=== PATIENT | male | born 1995 | race Caucasian/White ===

== ENCOUNTER 2021-10-20 20:25 | Emergency (ER) | payer MEDICAID, SELFPAY ==
[2021-10-20 20:24] VITALS: BP 138/125; PULSE 118; RESP 20; TEMP 36.7; O2SAT 100
--- NOTE | 2021-10-20 20:35 | W.ED.GENAD ---
Discharge Plan Disposition Patient Disposition: HOME Condition: Stable Discharge Details Clinical Impression: Esophageal foreign body Primary Care Provider: Lisa,Local ED Provider: Franc So Home Meds and New Rx's Prescriptions: Continued cetirizine [Zyrtec] 10 MG tablet 1 tab PO DAILY Qty: 90 Discharge Instructions Instructions: Esophageal Foreign Body (ED) Additional Instructions: try to cut your food smaller and make sure to chew it adequately if you feel more ill, have severe pain or difficulty breathing return to the emergency department Medical Decision Making 26 yo male who denies chronic medical problems comes in with ems with stating he has ham stuck in his throat. He was eating it tonight and swallowed a large piece of ham and felt it get stuck in his throat while swallowing. He is speaking clearly, no stridor but is unable to swallow liquids. HE has no abdominal tenderness, clear lungs, points to the upper sternal border where he feels it is stuck. Normal posterior pharynx, no drooling. Will try glucagon and also effervescent pt coughed and had large piece of ham up, will hold on meds at this time pt stable, swallowing liquids, requesting d/c. Advised to try and make sure he cuts and chews food well, return precautions given Differential Diagnosis Differential Diagnosis: esopohageal foreign body, stricture HPI General Mode of arrival: ambulatory. Date/Time Provider Initiated Documentation: 10/20/21 20:33. Limitations to Documentation: no limitations. Information obtained by: patient. History of Present Illness 26 year old M presents to the emergency department with the chief complaint of ham stuck in throat, described as moderate, Patient started experiencing this hour(s) (1) and it has been constant. No relieving factors improve symptom(s), No exacerbating factors reported . Patient notes no other symptoms.. Patient did receive the following treatments prior to arrival, none Related Data Home Medications Medication Instructions Recorded Confirmed cetirizine 10 mg tablet (Zyrtec) 1 tab PO DAILY #90 tab-caps 04/11/16 Allergies Allergy/AdvReac Type Severity Reaction Status Date / Time No Known Allergies Allergy Unverified 08/21/16 15:22 General Stated Complaint: ThroatFB CHACE: 2 Review of Systems All systems reviewed & are unremarkable except as noted in HPI and below Constitutional Constitutional: Denies chills, Denies fever(s) and Denies weakness Eyes Eyes: Denies loss of vision ENT Ears, Nose, Mouth, and Throat: Denies change in voice Cardiovascular Cardiovascular: Denies chest pain and Denies dyspnea Respiratory Respiratory: Denies cough and Denies dyspnea Gastrointestinal Gastrointestinal: Denies abdominal pain, Denies nausea and Denies vomiting Integumentary/Breasts Skin/Breast: Denies rash Neurologic Neurologic: Denies loss of vision and Denies weakness PFSH All Active Problems (Updated 10/20/21 @ 20:53 by Franc So MD) Esophageal foreign body (Acute) ADHD (Acute 10/25/12) Allergic rhinitis (Acute 10/25/12) Wheezing (Acute 10/25/12) Medical History (Updated 10/20/21 @ 20:53 by Franc So MD) iep/504 Vision disturbance Surgical History Adenoidectomy Circumcision Myringotomy w/ PE (pressure equalizing) tubes Family History Father Essential hypertension Heart disease Hyperlipidemia Social History Smoking/Tobacco Use Status: Never Smoking risk assessment performed?: Yes Alcohol Intake: current Alcohol Intake frequency: holidays/special occasions only Substance use type: does not use Exam Const General: no acute distress Orientation: alert [facility] Head: normal to inspection Ears: external ears normal General nose exam: external nose normal Mouth: moist mucous membranes Eyes General: appearance normal, both eyes and all related structures Neck Neck: normal visual inspection Resp Effort & Inspection: normal respiratory effort and able to speak in complete sentences Cardio Rate: regular rate Skin General skin exam: no rashes or lesions noted Neuro General: patient alert and patient oriented x3 Extrem General: normal to inspection Psych Mental Status: mental status grossly normal Course Vital Signs Vital signs: Vital Signs Temperature 36.7 C 10/20/21 20:24 Pulse 118 H 10/20/21 20:24 Respiratory Rate 10/20/21 20:24 Blood Pressure 138/125 H 10/20/21 20:24 Pulse Oximetry 100 10/20/21 20:24 Temperature 36.7 C 10/20/21 20:24 Temperature Source Temporal Artery Scan 10/20/21 20:24 Pulse 118 H 10/20/21 20:24 Respiratory Rate 10/20/21 20:24 Blood Pressure 138/125 H 10/20/21 20:24 Blood Pressure Position Sitting 10/20/21 20:24 Pulse Oximetry 100 10/20/21 20:24 Oxygen Delivery Method Room Air 10/20/21 20:24 Oxygen Flow Rate 0 10/20/21 20:24
[2021-10-20 20:39] VITALS: BP 136/80; PULSE 97; RESP 18; O2SAT 100
[2021-10-20 21:08] VITALS: BP 112/88; PULSE 91; RESP 17; O2SAT 97
[2021-10-20 21:39] VITALS: BP 113/61; PULSE 85; RESP 18; O2SAT 96
== END 2021-10-20 21:44 | disposition home or self-care (01) ==
LOC: ER 21:55
PROVIDERS: Emergency Provider Emergency Medicine
DX: T18.128A Food in esophagus causing other injury, initial encounter (principal); X58.XXXA Exposure to other specified factors, initial encounter
CPT/HCPCS: 87635; 96374; 99284

== ENCOUNTER 2023-03-21 19:20 | Emergency (ER) | payer MEDICAID, SELFPAY ==
[2023-03-21 19:30] VITALS: BP 150/82; PULSE 82; RESP 16; TEMP 36.6; O2SAT 98
--- NOTE | 2023-03-21 19:30 | DI.RAD_ITS ---
Exam(s) XR THORACOLUMB JUNCT 2V EXAM: XR THORACOLUMB JUNCT 2V CLINICAL HISTORY: fall injury mid/low back pain. TECHNIQUE: 2D digital imaging was performed of the thoracic and lumbar spine. Six images were obtai amos. AP and lateral views were obtained. COMPARISON: CR CHEST 2 VIEWS PA,LAT from 02/15/2010 FINDINGS: BONES: No fracture or destructive lesion. Vertebral bodies are unremarkable. No facet hypertrophy katie ntified. DISKS: Intervertebral disc spaces are maintained. ALIGNMENT: Lumbar spinal alignment is within normal limits. SOFT TISSUE: The visualized lung kaur are clear. IMPRESSION: No acute fractures or subluxations. DATA REPOSITORY: RADIATION DOSE DELIVERED:
--- NOTE | 2023-03-21 19:39 | ED.GENADUL_ITS ---
HPI General Mode of arrival: ambulatory . Date/Time Provider Initiated Documentation: 03/21/23 19:39 . Limitations to Documentation: no limitations . Information obtained by: patient . HPI Narrative: patient presents to the ED for evaluation of mid to low back pain after sustaining abdomen mechanical fall with send slipped on ice while working this afternoon at approximately 430. He did not hit his head there was no other injury or complaints he was able to get up and finish his shift. He took acetaminophen immediately after the fall. He is presenting now for evaluation at the recommendation of significant. This pain has not worsened and again there are no other symptoms Related Data Home Medications Medication Instructions Recorded Confirmed cetirizine 10 mg tablet (Zyrtec) 1 tab PO DAILY PRN #90 tab-caps 04/11/16 03/21/23 ibuprofen 200 mg tablet 600 mg (3 x 200 mg) PO Q6H PRN #1 03/21/23 tab Previous Rx's Medication Instructions Recorded ibuprofen 200 mg tablet 600 mg (3 x 200 mg) PO Q6H PRN #1 03/21/23 tab Allergies Allergy/AdvReac Type Severity Reaction Status Date / Time No Known Allergies Allergy Unverified 03/21/23 19:34 General Stated Complaint: Nk/Back Pain CHACE: 3 Review of Systems All systems reviewed & are unremarkable except as noted in HPI and below Exam Narrative Exam Narrative: Well-appearing male of stated age in no acute distress. Head is atraumatic normocephalic. Neck is supple with full range of motion and no C-spine tenderness on palpation. Cardiovascular regular rate and rhythm pulses regular skin is well-perfused good distal pulses radial. Respirations are even and nonlabored. Chest rise is symmetrical there is no crepitus. Back with normal lordosis no bruising abrasions or obvious evidence of trauma. Thoracic and lumbar spine generalized tenderness on palpation with no point tenderness identified. Moves all extremities equally. Gait is steady. Neurologic he is awake alert oriented no focal deficits psychiatric calm and cooperative and appropriate. No evidence of impairment or altered mental status Course Vital Signs Vital signs: Vital Signs Temperature 36.6 C 03/21/23 19:30 Pulse 82 03/21/23 19:30 Respiratory Rate 16 03/21/23 19:30 Blood Pressure 150/82 H 03/21/23 19:30 Pulse Oximetry 98 03/21/23 19:30 Temperature 36.6 C 03/21/23 19:30 Temperature Source Oral 03/21/23 19:30 Pulse 82 03/21/23 19:30 Respiratory Rate 16 03/21/23 19:30 Respiratory Effort Normal, Non-Labored 03/21/23 19:34 Blood Pressure 150/82 H 03/21/23 19:30 Pulse Oximetry 98 03/21/23 19:30 Oxygen Delivery Method Room Air 03/21/23 19:30 Oxygen Flow Rate 0 03/21/23 19:30 Pain Level 8 03/21/23 19:30 Medical Decision Making Patient presents with a mechanical fall on ice complaining of mid to low back pain. No head injury no C-spine tenderness. Will obtain thoracolumbar plain films to evaluate for possible compression fracture. Will also dip urine to evaluate for possible injury is most likely low back strain/contusion. He will be provided ibuprofen 600 mg while imaging is pending. Urine and imaging reviewed. Patient is safe for discharge to home with symptom management including ice for the first 24 to 48 hours then heat or ice to affected areas. Will advise ibuprofen 600 mg 4 times daily with food for 5 days then as needed for pain can add acetaminophen 654 times daily for breakthrough pain. I would avoid lifting greater than 5 pounds until symptoms improved. No bending twisting or lifting with bend at waist. Follow-up with occupational medicine for recheck if symptoms not improving Medical Records Medical records reviewed: Yes I reviewed the patient's medical records. Imaging Data Radiologic Study: Imaging: X-Ray Radiologist's impression: Exam(s) PROCEDURE INFORMATION: Exam: XR Thoracolumbar Spine Exam date and time: 03/21/2023 20:02 Age: 28 years old Clinical indication: Other: Fall injury, mid/low back pain TECHNIQUE: Imaging protocol: Radiologic exam of the thoracolumbar spine. Views: 2 views. COMPARISON: No relevant prior studies available. FINDINGS: Bones/joints: No acute fracture or subluxation. No significant degenerative changes are seen. Soft tissues: Unremarkable. IMPRESSION: No acute bony pathology. Dictated and Authenticated by: Kasey Little MD. Ordering:АЛЕКСАНДР Ayala MD Lab Data Lab results reviewed: Yes I reviewed the patient's lab results. Lab results narrative: Laboratory Results - last 24 hr 03/21/23 19:42 Urine Color Dark Yellow Urine Clarity Sl Cloudy Urine pH 6.5 Ur Specific [place] >= 1.030 H Urine Protein 30 H Urine Ketones 15 H Urine Blood Trace-intact H Urine Nitrite Negative Urine Bilirubin Small H Urine Urobilinogen 4.0 H Ur Leukocyte Esterase Negative Urine RBC 0-2 Urine WBC 0-2 Ur Epithelial Cells Negative Urine Crystals Negative Urine Bacteria Negative Urine Casts 0-2 Hyaline Urine Mucus Moderate Ur Culture Indicated? No Urine Glucose Negative Quality:SDOH Health Related Social Needs: No Data to Display PFSH All Active Problems (Updated 03/21/23 @ 20:25 by Lucy Davis NP) Contusion (Acute) Low back strain (Acute) ADHD (Acute 10/25/12) Allergic rhinitis (Acute 10/25/12) Wheezing (Acute 10/25/12) Medical History (Updated 03/21/23 @ 20:25 by Lucy Davis NP) iep/504 Vision disturbance Surgical History Myringotomy w/ PE (pressure equalizing) tubes Circumcision Adenoidectomy Family History Father Essential hypertension Heart disease Hyperlipidemia Social History Smoking/Tobacco Use Status: Never Smoking risk assessment performed?: Yes Alcohol Intake: current Alcohol Intake frequency: holidays/special occasions only Drug use: Never Substance use type: does not use Do you feel safe at home: Yes Do you feel safe in your relationship?: Yes Discharge Plan Disposition Patient Disposition: Home Condition: Stable Discharge Details Clinical Impression: Low back strain, Contusion Primary Care Provider: None,None ED Provider: Lucy Davis Home Meds and New Rx's Prescriptions: New ibuprofen 200 mg tablet 600 mg PO Q6H PRNQty: 1 0RF Continued cetirizine [Zyrtec] 10 MG tablet 1 tab PO DAILY PRNQty: 90 Discharge Instructions Instructions: Low Back Strain (ED), Contusion in Adults (ED) Additional Instructions: ice for the first 24 to 48 hours then heat or ice to affected areas. ibuprofen 600 mg 4 times daily with food for 5 days then as needed for pain can add acetaminophen 650 mg 4 times daily for breakthrough pain. avoid lifting greater than 5 pounds until symptoms improved. No bending twisting or lifting with bend at waist. Follow-up with occupational medicine for recheck Stand Alone Forms: Work Release
[2023-03-21] MEDS: Ibuprofen 600 MG TAB PO (19:49)
[2023-03-21 19:53] LABS: Bilirubin Small (Negative); Blood Trace-intact (Negative); Clarity Sl Cloudy (Clear); Glucose Negative (Negative); Ketones 15 mg/dL (Negative); Leukocyte Esterase Negative (Negative); Nitrite Negative (Negative); Specific Gravity >= 1.030 (1.005-1.025); pH 6.5 (5-8)
[2023-03-21 20:00] LABS: Bacteria Negative HPF (Negative); C & S Indicated? No; Casts 0-2 Hyaline LPF (Negative); Crystals Negative HPF (Negative); Epithelial Cells Negative HPF (Negative); Mucus Moderate (Negative); RBC 0-2 HPF (0-2); WBC 0-2 HPF (0-5)
--- NOTE | 2023-03-21 20:29 | DI.VRAD_ITS ---
PROCEDURE INFORMATION: Exam: XR Thoracolumbar Spine Exam date and time: 03/21/2023 20:02 Age: 28 years old Clinical indication: Other: Fall injury, mid/low back pain TECHNIQUE: Imaging protocol: Radiologic exam of the thoracolumbar spine. Views: 2 views. COMPARISON: No relevant prior studies available. FINDINGS: Bones/joints: No acute fracture or subluxation. No significant degenerative changes are seen. Soft tissues: Unremarkable. IMPRESSION: No acute bony pathology. Dictated and Authenticated by: Kasey Little MD. Ordering:АЛЕКСАНДР Ayala MD
== END 2023-03-21 21:01 | disposition home or self-care (01) ==
PROVIDERS: Emergency Provider Nurse Practitioner Acute Care
DX: S20.224A Contusion of middle back wall of thorax, initial encounter (principal); S39.012A Strain of muscle, fascia and tendon of lower back, initial encounter; W00.0XXA Fall on same level due to ice and snow, initial encounter; Y93.01 Activity, walking, marching and hiking; Y92.89 Other specified places as the place of occurrence of the external cause; Y99.0 Civilian activity done for income or pay
CPT/HCPCS: 99284; 72080; 81003; 81015